=== PATIENT | female | born 1990 | race Two or more races ===

== ENCOUNTER 2020-09-12 23:27 | Emergency (ER) | payer MEDICAID ==
[~2020-09-12] VITALS: Ht 167.6 cm; Wt 59.0 kg
[2020-09-13] MEDS ORDERED: CLINDAMYCIN 900MG IV 50 ML IV ONE (03:15)
[2020-09-13] MEDS ORDERED: cefTRIAXone SOD 1,000 MG VL IM ONE (03:15)
[2020-09-13 04:43] LABS: Basophils # (auto) 0 10 ^3/uL (0-0.2); Basophils % (auto) 0.3 % (0.0-2.0); Eosinophils # (auto) 0.4 10 ^3/uL (0-0.8); Eosinophils % (auto) 5.3 % (0.0-7.0); Hematocrit 36.9 % (36.0-46.0); Hemoglobin 12.4 g/dL (12.2-16.2); Lymphocytes # (auto) 1.9 10 ^3/uL (0.4-5.4); Mean Corpuscular Hemoglobin 28.7 pg (28.0-32.0); Mean Corpuscular Hgb Conc. 33.6 g/dL (32.0-36.0); Mean Corpuscular Volume 85.3 fL (80.0-100.0); Monocytes # (auto) 0.8 10 ^3/uL (0-1.3); Monocytes % (auto) 10.2 % (0.0-12.0); Neutrophils % (auto) 61.2 % (37.0-80.0); Nucleated Red Blood Cells % 0.1 %; Platelet Count (auto) 341 10^3/uL (140-450); Red Blood Cells 4.33 10^6/uL (4.0-5.20); White Blood Cell 8.1 10^3/uL (4.4-10.8)
[2020-09-13 04:58] LABS: Albumin 3.7 g/dL (3.4-5.0); Calcium 8.9 mg/dL (8.5-10.1); Potassium 3.4 mmol/L (3.5-5.1)
[2020-09-13 05:01] LABS: BUN/Creatinine Ratio 16.7; Bilirubin, Total 0.7 mg/dL (0.2-1.0); Total Protein 7.3 g/dL (6.4-8.2)
[2020-09-13 05:34] VITALS: BP 109/55
[2020-09-13 06:52] LABS: Alcohol, Urine < 3.0 mg/dL (0-10); Amphetamine Screen, Urine POSITIVE (NEGATIVE); Barbiturate Scree,Urine NEGATIVE (NEGATIVE); Benzodiazephine Screen, Urine NEGATIVE (NEGATIVE); Cannabinoid Screen, Urine POSITIVE (NEGATIVE); Cocaine Screen, Urine NEGATIVE (NEGATIVE); Opiate Scree,Urine POSITIVE (NEGATIVE); Phencyclidine Screen, Urine NEGATIVE (NEGATIVE)
[2020-09-13] MEDS ORDERED: CLIN150C PO (09:17)
== END 2020-09-13 09:23 | disposition home or self-care (01) ==
LOC: ER 23:30
DX: L02.414 Cutaneous abscess of left upper limb (principal)
CPT/HCPCS: 36415; 73200; 80053; 80307; 83605; 84702; 85025; 87040; 96365; 96366; 96372; 99285; J0696; J3490

== ENCOUNTER 2021-03-14 05:08 | Emergency (ER) | payer MEDICAID ==
[~2021-03-14] VITALS: Ht 167.6 cm; Wt 65.8 kg
[~2021-03-14 05:08] MED LIST: CLIN150C PO
[2021-03-14 08:31] VITALS: BP 128/80
== END 2021-03-14 08:49 | disposition home or self-care (01) ==
LOC: ER 05:08
DX: S40.251A Superficial foreign body of right shoulder, initial encounter (principal); Z79.2 Long term (current) use of antibiotics; X58.XXXA Exposure to other specified factors, initial encounter; Y93.89 Activity, other specified; Y92.89 Other specified places as the place of occurrence of the external cause; Y99.8 Other external cause status
CPT/HCPCS: 10120